=== PATIENT | female | born 1990 | race Caucasian/White ===

== ENCOUNTER 2020-09-01 08:15 | Outpatient (RCR) | payer OTHER, SELFPAY ==
[2020-08-17 09:17] VITALS: BMI 24.5
--- NOTE | 2020-08-17 13:08 | PC.ADMIT ---
Patient is a 30 year old female who started the [facility] program today. She was [facility] by [facility], [facility], where patient has been living with her 5 year old daughter for the past 8 months. Patient reports she has been sober from heroin for the past 3.6 months and is on medication assisted treatment with Suboxone. She does report a hx of overdosing 4-5 times last time 4 years ago and was given Narcan each time. Patient has been experiencing and increase in depression, anxiety, and PTSD symptoms. Reports increased stress as there has been a lot of changes with staff at the house where she is living and does not feel comfortable with some staff. In addition she feels she is being treated unfairly. Patient also reports that at the end of the month she is moving into her own apartment or hotel with her daughter and this is causing much stress as she does not know where she will be living and staff have not done there part to ensure a smooth transition. Patient is alert and oriented x4. Calm and cooperative. Presents with a depressed mood and anxious affect. Denied SI. Gave staff verbal permission to email her a copy of her safety plan. Medications reconciled with patient and patient's pharmacy. Patient reports she is taking medication as prescribed. Regarding medical issues patient reports hx of having a seizure 3-4 years ago and stated she feel to the ground and experienced whole body jerking movements and was incontinent of urine. Patient stated this was not drug induced. Denies seeing a neurologist however stated her PCP is suppose to get her a referral to see a neurologist. If patient has a seizure while in the program she wants staff to call 911. She stated there is not one at [facility] that we could contact as she stated they will do nothing . Staff educated about patients seizure d/o.
--- NOTE | 2020-08-18 17:33 | HO.PS.ADMBH ---
HPI Chief Complaint: depression Sources of Information: patient interviewed and chart reviewed HPI Narrative: Patient is a 30-year-old female with significant trauma history and history of opiate use disorder currently in remission on treatment with Suboxone. She presents to [facility] due to reports of increasing symptoms of depression, anxiety, and PTSD. Patient currently resides at recovery home with her [id number] daughter (she has been there for the last 8 months) and she is due to moved to another [facility] in about 3 weeks. Patient reports feeling unsupported at her current residence including her time in [facility] as she was told they could help with childcare and today she has had to watch her daughter while in the program. She reports she has been in recovery for over 3 years from opiates and reports she has a significant support network. She is reporting increasing anxiety, decreased motivation, lack of enjoyment, intrusive memories and flashbacks, decreased appetite, sadness and irritability. Past Psychiatric History: Reports 1 psychiatric admission which she states was very brief Currently has psychiatric provider and therapist in place through [facility] Numerous [facility] Medical History Anemia Asthma Fibromyalgia Gastroparesis Seizure disorder Surgical History (Updated 08/17/20 @ 12:53 by Rosemarie Philippe RN) Hx of section Narrative: Patient with significant trauma history as outlined in [facility] admission assessment Substance use history reviewed currently in recovery from opiates Diagnostics Vital Signs (24Hr): Body Mass Index 24.5 Meds/Allergies Allergies Allergies Allergy/AdvReac Type Severity Reaction Status Date / Time amoxicillin [AMOXICILLIN] Allergy Unknown HIVES Unverified 04/27/20 16:13 morphine Allergy Unknown Unknown Verified 08/17/20 12:46 Mental Status Exam Mental Status Exam Patient Appearance: Well Grooomed and Appropriate Patient Orientation: Person, Place, Time and Situation Level of Consciousness: Awake, Appropriate and Alert Patient Behavior: Appropriate Mood Description: Blunted Affect Description: Appropriate Speech Pattern: Clear Hallucinations: None Delusions: Not Present Thought Process: Goal Oriented Thought Content: positive for Intact and positive for Goal Oriented Depressive Symptoms: Increased Anxiety, Increased Irritability, Difficulty Sleeping, Loss of Int. in Activity, Unhappiness and Loss of Energy Judgement: Good Assessment & Plan Assessment & Plan (1) Post traumatic stress disorder (PTSD): Status: Acute Code(s): F43.10 - Post-traumatic stress disorder, unspecified Assessment and Plan: -no changes to current regimen as she is followed outpatient at [facility] (2) Opioid use disorder, severe, in sustained remission, in controlled environment: Status: Acute Code(s): F11.21 - Opioid dependence, in remission Assessment and Plan: -currently on MA T Certification I certify that partial hospital treatment is medically necessary due to the symptoms and problems resulting from the patient's mental illness and the failure to treat the patient at the partial hospital level of care would likely result in the patient requiring inpatient psychiatric care which could not be prevented at a less intensive level of care. Telehealth Telehealth Location of provider rendering services: practice address Location of patient: address on file Patient Identification confirmed using: Name, : Yes Telehealth method: video Patient verbally consented to treatment: Yes Patient verbally consented to billing insurance company: Yes Time spent with patient (mins): 16
--- NOTE | 2020-08-21 15:23 | PC.NURSE ---
I called the client to review her treatment plan but was unable to because she was working on trying to get a prescription refill from her prescriber. She explained that she ran out of the benzodiazepam that she has been prescribed and needs it refilled. I suggested she speak with the house counselor because staff gives out the medication I told her we will review her tx plan tomorrow.
--- NOTE | 2020-08-22 11:04 | PC.NURSE ---
I attempted to call pt after she emailed staff reporting that she was struggling to get into the group online. I received an automated message stating that the person I'm calling is not accepting calls at this time.
--- NOTE | 2020-08-22 12:51 | PC.NURSE ---
I called the clients therapist Maria Isabel Abrams. We discussed clients progress and length of program
--- NOTE | 2020-08-23 13:37 | PC.NURSE ---
I reviewed treatment plan and we discussed discharge plans. Her last date will be 09/07/20
--- NOTE | 2020-08-23 20:55 | HO.PHPPROGNO ---
Subjective Subjective Date of Service: 08/23/20 Reason For Visit: depression Interim History: Pt reports multiple psychosocial stressors including potentially losing placement at sober home. Pt reports that she was told she would have childcare while attending program. However, this has not been the case. She reports having to attend meeting at [facility] with her 15 month old baby. Pt reports interrupted sleep at times but feeling fairly rested in the morning. Pt also reports worrying about DCF taking custody of her baby. Despite multiple psychosocial stresors, pt adamantly denies SI/HI. Medication Compliance: Yes Side effects from medications: No Attending Groups: Yes Review of Systems Constitutional: Reports no additional constitutional complaints Cardiovascular: Reports no additional cardiovascular complaints Respiratory: Reports no additional respiratory complaints Mental Status Exam Mental Status Exam Narrative: Appearance: casually groomed, in NAD. Behavior: calm, cooperative. Psychomotor: no agitation or retardation noted Speech: clear, normal rate/rhythm, spontaneous TP: linear TC: overwhelmed with psychosocial stressors but future oriented, not suicidal thoughts Mood: anxious Affect: brighter at times, congruent with reported mood AH/VH: none Delusions: none Insight/judgment: fair x 2. Memory/cog: alert, oriented x 3. grossly intact to conversational testing. Diagnostics Vital Signs (24Hr): Body Mass Index 24.5 Assessment & Plan Assessment & Plan (1) Opioid use disorder, severe, in sustained remission, in controlled environment: Status: Acute Code(s): F11.21 - Opioid dependence, in remission Assessment and Plan: No medication changes at this time (2) Post traumatic stress disorder (PTSD): Status: Acute Code(s): F43.10 - Post-traumatic stress disorder, unspecified Assessment and Plan: No medication changes at this time. Certification I certify that partial hospital treatment is medically necessary due to the symptoms and problems resulting from the patient's mental illness and the failure to treat the patient at the partial hospital level of care would likely result in the patient requiring inpatient psychiatric care which could not be prevented at a less intensive level of care. Greater than 50% of the session was spent on counseling and/or coordination of care Discharge Plan Discharge Attending provider: Agustin Fowler Medications: No Action nicotine 14 mg/24 hr Patch 24 Hour 1 patch TRANSDERMAL DAILY RF: 0 gabapentin 800 mg Tablet 800 mg PO TID RF: 0 clonazepam 2 mg Tablet 2 mg PO BID RF: 0 albuterol 90 mcg/actuation Aerosol INHALATION RF: 0 escitalopram oxalate [Lexapro] 20 mg Tablet 20 mg PO DAILY RF: 0 L norgest/e.estradiol-e.estrad [Ashlyna] 0.15 mg-30 mcg (84)/10 mcg (7) Tablets,Dose Pack,3 Month 1 tab PO DAILY RF: 0 buprenorphine-naloxone [Suboxone] 8-2 mg Film 2 film BUCCAL DAILY RF: 0 Telehealth Telehealth Location of provider rendering services: practice address Location of patient: address on file Patient Identification confirmed using: Name, : Yes Telehealth method: video Patient verbally consented to treatment: Yes Patient verbally consented to billing insurance company: Yes Patient informed of any privacy concerns related to visit: Yes Time spent with patient (mins): 15
--- NOTE | 2020-08-24 14:05 | PC.NURSE ---
I called client to discuss group participation and how best to use groups by focusing on what is in her control. She did not answer and I left a message to call me.
--- NOTE | 2020-08-25 13:32 | PC.NURSE ---
The client missed today because she was packing her belongings to move from the residence. We discussed upcoming DCF meeting and next weeks schedule. She plans to be in every day next week.
--- NOTE | 2020-08-28 09:31 | PC.NURSE ---
I called Jeannette because she did not come to morning meeting. she just assumed we were closed because of the holiday. She states that she will be in tomorrow
--- NOTE | 2020-08-29 11:02 | PC.NURSE ---
Patient just notified staff that she has an appointment today with her outpatient prescriber. Appointment with [facility] prescriber Sharmin Funez NP that was scheduled today was cancelled as a result. [facility] team is aware.
--- NOTE | 2020-08-31 15:04 | PC.NURSE ---
I called client to discuss discharge date. I left message to call back
--- NOTE | 2020-09-01 09:30 | PC.NURSE ---
Notified patient that a MACK was ordered for her. She stated she gets them done at [facility] and gave consent to call Leroy the Clinical Director at [facility] and review results. Spoke to Leroy who stated last screen done on 08/07/20 was positive for only her prescription medication.
--- NOTE | 2020-09-01 11:43 | PC.NURSE ---
Called [facility] where patient's PCP is located and spoke to the nurse Pricilla. Reviewed with Pricilla Henderson's report of having a seizure 3-4 years ago and never followed up with a Neurologist. She described experiencing an episode where she fell to the ground, whole body jerking movements, and was incontinent of urine. She stated this was not related to substance use. Pricilla will review the need for a referral to a neurologist with Beatriz's PCP.
== END 2020-09-01 23:55 | disposition home or self-care (01) ==
LOC: HO.PHPA 08:15
PROVIDERS: Visit Provider Psychiatry & Neurology Psychiatry
DX: F43.10 Post-traumatic stress disorder, unspecified (principal); F11.20 Opioid dependence, uncomplicated
CPT/HCPCS: 90791; 90853; 99202; 99213

== ENCOUNTER 2021-05-21 01:44 | Emergency (ER) | payer MEDICAID, SELFPAY ==
[2021-05-21 02:16] VITALS: BP 122/62; PULSE 112; RESP 18; TEMP 36.7; O2SAT 99; BMI 28.3
--- NOTE | 2021-05-21 03:55 | PC.NURSE ---
dr hilliard at bedside aplying oral care at this time, (white dental repair paste being applied.) pt valentín well .
[2021-05-21 04:00] VITALS: BP 94/59; PULSE 98; RESP 18; O2SAT 96
[2021-05-21 04:07] VITALS: BP 94/59; PULSE 103; RESP 18; O2SAT 97
--- NOTE | 2021-05-21 04:30 | ED_ITS ---
HPI - Dental/Oral General Chief complaint: Dental/Oral Stated complaint: dental pain, front tooth chipped/falling out Time Seen by Provider: 05/21/21 03:34 Source: patient Mode of arrival: ambulatory Limitations: no limitations History of Present Illness HPI Narrative: Patient comes emergency room complaining of dental pain. Patient states she was trying to open a bone pain over her teeth, and the tooth chipped. Patient complaining of toothache, the tooth is still attached. Patient states she does not have a dentist. MD Complaint: tooth injury Teeth map: 1. Related Data Home Medications Medication Instructions Recorded Confirmed L norgest/E estradiol-E estrad 1 tab PO DAILY 08/17/20 08/17/20 0.15 mg-30 mcg (84)/10 mcg(7) tabs,3mos (Ashlyna) albuterol 90 mcg/actuation aerosol mcg INHALATION 08/17/20 inhaler buprenorphine 8 mg-naloxone 2 mg 2 film BUCCAL DAILY 08/17/20 08/17/20 sublingual film (Suboxone) clonazepam 2 mg tablet 2 mg PO BID 08/17/20 08/17/20 escitalopram oxalate 20 mg tablet 20 mg PO DAILY 08/17/20 08/17/20 (Lexapro) gabapentin 800 mg tablet 800 mg PO TID 08/17/20 08/17/20 nicotine 14 mg/24 hr daily 1 patch TRANSDERMAL DAILY 08/17/20 08/17/20 transdermal patch Previous Rx's Medication Instructions Recorded clindamycin HCl 150 mg capsule 150 mg PO TID #21 cap 05/21/21 ibuprofen 600 mg tablet 600 mg PO TID PRN #14 tab 05/21/21 Allergies Allergy/AdvReac Type Severity Reaction Status Date / Time amoxicillin [AMOXICILLIN] Allergy Unknown HIVES Verified 05/21/21 02:15 morphine Allergy Unknown Unknown Verified 08/17/20 12:46 Review of Systems Review of Systems: Constitutional : No Weight loss, No Fever, No Chills, No Night Sweats, No Fatigue, No Malaise ENT/Mouth : No Hearing loss, No Ear Pain, No Nasal Congestion, No Sinus Pain, No Hoarseness, No sore throat, No Rhinorrhea, No Swallowing Difficulty, complaining of dental pain Eyes: No Eye Pain, No Swelling, No Redness, No Foreign Body, No Discharge, No Vision Changes Cardiovascular : No Chest Pain, No SOB, No Dyspnea on Exertion, No Orthopnea, No Edema, No Palpitations Respiratory : No Cough, No Sputum, No Wheezing, No Smoke Exposure, No Dyspnea Gastrointestinal : No Nausea, No Vomiting, No Diarrhea, No Constipation, No abdominal Pain, No Hematochezia, No Melena Genitourinary : no irregular bleeding, No Dysuria, No Urinary Frequency, No Hematuria, No Urinary Incontinence, No Urgency, No Flank Pain, No Urinary Flow Changes, No Hesitancy Musculoskeletal : No joint pain, No Myalgias, No Joint Swelling Skin : No Skin Lesions, No rash Neuro : No Weakness, No Numbness, No Paresthesias, No Loss of Consciousness, No Dizziness, No Headache Psych : No Anxiety/Panic, No Depression, No SI/HI/AH/VH, No Social Issues, Heme/Lymph: No Bruising, No Bleeding,No Lymphadenopathy Endocrine : No Polyuria, No Polydipsia, No Temperature Intolerance PMFSH Past Medical History Medical History Anemia Asthma Fibromyalgia Gastroparesis Seizure disorder Surgical History Hx of section Social History Social History Household Members: Other Household Members Other:: various prison members Alcohol intake: never Patient Tobacco Use Status: Current everyday Tobacco user Cigarettes Per Day: 4 Smoked in Last 30 Days: Yes Use of substances other than those prescribed or required for medical reasons: No Advance Directives: No Advance Directives Information Provided: Yes Patient : No Physical Exam Vital Signs: Vital Signs: Last Vital Signs Temp 98.0 F 05/21/21 02:16 Pulse 103 H 05/21/21 04:07 Resp 18 05/21/21 04:07 BP 94/59 L 05/21/21 04:07 Pulse Ox 97 05/21/21 04:07 Body Mass Index 28.3 Const: Other: Appearance: Alert. Oriented X3. No acute distress. Eyes: Pupils equal, round and reactive to light. ENT: Pharynx normal. Chipped the tooth, loose, still attached Neck: Normal inspection. Neck supple. No lymph nodes noted. No crepitus CVS: Normal heart rate and rhythm. Pulses normal. Normal S1 and S2 Respiratory: No respiratory distress. Breath sounds normal. No Wheezing. No rales Abdomen: Soft and nontender. No rigidity. No distention. good BS x4 Skin: Skin warm and dry. Normal skin color. Normal skin turgor. Extremities: No lower extremity edema. No lower extremity edema. No Lacerat ions. No Rash Neuro: Oriented X 3. No motor deficit. No sensory deficit. Moving all extermities. No slurred speech. Course Course Course Narrative: Cement was applied to patient's tooth. Patient is to follow- up with dentist. Patient was started on antibiotics due to the dental pain Discharge Plan Discharge Clinical Impression: Fracture of tooth Patient Disposition: Home, Self-Care Instructions: Acute Dental Trauma (ED) Additional Instructions: Please follow-up with your primary care physician tomorrow. If you have any worsening or new symptoms, please return to the emergency room or call 911 Prescriptions: New clindamycin HCl 150 mg capsule 150 mg PO TID Qty: 21 RF: 0 ibuprofen 600 mg tablet 600 mg PO TID PRN (Reason: pain) Qty: 14 RF: 0 No Action nicotine 14 mg/24 hr Patch 24 Hour 1 patch TRANSDERMAL DAILY RF: 0 gabapentin 800 mg Tablet 800 mg PO TID RF: 0 clonazepam 2 mg Tablet 2 mg PO BID RF: 0 albuterol 90 mcg/actuation Aerosol INHALATION RF: 0 escitalopram oxalate [Lexapro] 20 mg Tablet 20 mg PO DAILY RF: 0 L norgest/e.estradiol-e.estrad [Ashlyna] 0.15 mg-30 mcg (84)/10 mcg (7) Tablets,Dose Pack,3 Month 1 tab PO DAILY RF: 0 buprenorphine-naloxone [Suboxone] 8-2 mg Film 2 film BUCCAL DAILY RF: 0
== END 2021-05-21 04:45 | disposition home or self-care (01) ==
PROVIDERS: Emergency Provider Emergency Medicine
DX: S02.5XXA Fracture of tooth (traumatic), initial encounter for closed fracture (principal); X58.XXXA Exposure to other specified factors, initial encounter; Y93.9 Activity, unspecified; Y92.9 Unspecified place or not applicable; Y99.9 Unspecified external cause status
CPT/HCPCS: 99283; 99284